=== PATIENT | female | born 1975 | race Caucasian/White ===

== ENCOUNTER 2017-03-21 01:45 | Emergency (ER) | payer BC, OTHER ==
--- NOTE | ~2017-03-21 | CT4 ---
[facility] A Service of [facility] & [facility] RADIOLOGY TEXT RESULTS PATIENT: XAVIER SCOTT LOCATION: SED : 77 UNIT #: [id number] AGE: [address]: Gamaliel Orlando MD SEX: F ORDER DR: [id number] [address] [address] [id number] E MR#: [id number] Acc #: [id number] NAME: XAVIER SCOTT. : 1975 SEX: F STUDY DATE/TIME: 03/21/2017 03:13 UNIT: SED ROOM: STUDY DESCRIPTION: CT Abd and Pelv Wo Cont Attending Physician: Gamaliel Orlando M.D. Ordering Physician: Gamaliel Orlando M.D. MEDICAL IMAGING REPORT This report is preliminary unless electronic signature is present. EXAM Abdomen and pelvis CT 03/21/2017 INDICATIONS Bilateral flank pain with dysuria and fever and vomiting that started last Monday. TECHNIQUE Axial noncontrast images were obtained through the abdomen and pelvis. Multiplanar reformats were obtained. Comparison made with 07/16/2015. This CT exam was performed with one or more of the following radiation dose reduction techniques: automatic control, adjustment of mA and/or kV according to patient size, and iterative reconstruction. FINDINGS ABDOMEN: The lung bases are clear. Gallbladder is surgically absent. No biliary obstruction. Small hepatic cysts are stable. The kidneys remain enlarged. They contain multiple cystic spaces as well as scattered areas of hyperdensity. Some of this may reflect milk of calcium but is nonspecific. It is unchanged however. No ureteral stones or hydronephrosis identified. Remaining unenhanced solid organs are normal. Unopacified GI tract is grossly normal. No free fluid. PELVIS: There are no lower ureteral stones. The bladder is normal. Multiple phleboliths are present in the pelvis. There has been interval development of a left ovarian dermoid. Contains fat as well as soft tissue and calcific density. Measures at least 1.9 cm. The unopacified GI tract is normal. The appendix is normal. IMPRESSION 1. Enlarged polycystic kidneys are not significantly changed. No ureteral stones are identified on either side and there is no definite hydronephrosis. [facility] A Service of [facility] & [facility] RADIOLOGY TEXT RESULTS PATIENT: XAVIER SCOTT LOCATION: SED : [birth year] UNIT #: [id number] AGE: [address]: Gamaliel Orlando MD SEX: F ORDER DR: 2. Interval development of a right ovarian dermoid measuring at least 1.9 cm. 3. Cholecystectomy and hysterectomy. 4. Normal unopacified GI tract including the appendix. Dictated by... Logan Carolina Jr., M.D. THIS IS AN ELECTRONICALLY VERIFIED REPORT Logan Carloina Jr., M.D. at 03/21/2017 9:23 PM MERCEDES/donnie TD: 03/21/2017 12:39 JOB #: [id number] MEDICAL IMAGING REPORT Page 1 of 1
[2017-03-21] MEDS ORDERED: VYVANSE70 MG PO (01:56)
[2017-03-21] MEDS ORDERED: TOPROL XL50 MG PO (01:56)
[2017-03-21] MEDS ORDERED: PLAQUENIL PO (01:56)
[2017-03-21] MEDS ORDERED: BACLOFEN10 MG PO (01:56)
[2017-03-21] MEDS ORDERED: ZESTRIL10 M1 PO (01:56)
[2017-03-21] MEDS ORDERED: PROTONIX PO (01:57)
[2017-03-21] MEDS ORDERED: TRINESSA TABLE1 EACH PO (01:57)
[2017-03-21] MEDS ORDERED: LYRICA75 MG PO (01:57)
[2017-03-21] MEDS ORDERED: ATIVAN2 MG PO (01:57)
[2017-03-21] MEDS ORDERED: ALBUTEROL17 GM INH (01:57)
[2017-03-21 02:55] LABS: URINE SOURCE CLEAN CATCH
[2017-03-21 02:57] LABS: BASOPHIL# 0.1 X10e3 (0-0.3); BASOPHIL% 0.5 % (0-2.5); EOSINOPHIL# 0.1 X10e3 (0-0.7); EOSINOPHIL% 0.4 % (0.0-7.0); HEMOGLOBIN 15.6 gm/dL (12.0-16.0); LYMPHOCYTE# 2.9 X10e3 (1.0-3.5); LYMPHOCYTE% 19.3 % (17.0-45.0); MEAN CELL VOLUME 91.6 FL (83-96); MEAN CORPUSCULAR HEMOGLOBIN 31.1 PG (28-34); MEAN PLATELET VOLUME 9.1 FL (6.5-11.5); MONOCYTE% 6.7 % (3.0-12.0); NEUTROPHIL# 10.8 X10e3 (1.5-7.1); NEUTROPHIL% 73.1 % (40-75); PLATELET COUNT 203 X10e3 (140-420); RED BLOOD COUNT 5.02 X10e (3.90-5.30); RED CELL DISTRIBUTION WIDTH 12.7 % (11.0-15.5); URINE APPEARANCE CLOUDY; URINE BILIRUBIN NEG (NEG); URINE BLOOD 2+ (NEG); URINE COLOR YELLOW; URINE GLUCOSE NEG (NORM); URINE LEUKOCYTE ESTERASE 3+ (NEG); URINE NITRATE POS (NEG); URINE PH 8.5 (5-8); URINE PROTEIN 2+ (NEG); URINE SPECIFIC GRAVITY 1.015 (1.003-1.035); URINE UROBILINOGEN 0.2 MG/DL (NORM); WHITE BLOOD COUNT 14.8 X10e3 (4.0-10.5)
[2017-03-21 02:59] LABS: DIFF IND NO
[2017-03-21 03:00] LABS: MICRO INDICATED? YES; URINE KETONE 2+ (NEG)
[2017-03-21 03:01] LABS: CULTURE INDICATED? YES; URINE BACTERIA 2+ (NEG); URINE MUCUS PRESENT; URINE SQUAMOUS EPITHELIAL CELL FEW /[HPF]; URINE WBC 100-200 /[HPF] (0-5)
[2017-03-21 03:12] LABS: ALBUMIN SERUM 4.5 g/dL (3.5-5.0); BILIRUBIN, DIRECT 0.2 mg/dL (0.0-0.2); BILIRUBIN,INDIRECT 0.8 mg/dL (0.0-0.9); CALCIUM SERUM 9.4 mg/dL (8.4-10.2); CREATININE SERUM 0.6 mg/dL (0.6-1.4); POTASSIUM 4.3 mmol/L (3.5-5.1); PROTEIN TOTAL SERUM 8.2 g/dL (6.0-8.3)
== END 2017-03-21 06:03 | disposition home or self-care (01) ==
LOC: SED 01:45
PROVIDERS: Emergency Medicine
DX: N10 Acute pyelonephritis (principal); D23.4 Other benign neoplasm of skin of scalp and neck; Z90.49 Acquired absence of other specified parts of digestive tract; Z90.710 Acquired absence of both cervix and uterus; F17.200 Nicotine dependence, unspecified, uncomplicated
CPT/HCPCS: 36415; 74176; 80048; 80076; 81003; 83605; 85025; 87040; 87086; 87088; 87186; 96361; 96374; 96375; 99284; J0696; J1170; J2270; J2405